=== PATIENT | female | born 1975 | race African-American/Black ===

== ENCOUNTER 2021-10-28 15:32 | Emergency (ER) | payer MEDICAID, OTHER ==
[~2021-10-28] VITALS: Ht 172.7 cm; Wt 109.0 kg
[2021-10-28 15:39] VITALS: BP 137/88
[2021-10-28] MEDS ORDERED: IBUP-2029 MT (18:27)
== END 2021-10-28 18:37 | disposition home or self-care (01) ==
LOC: ER 15:32
DX: S80.12XA Contusion of left lower leg, initial encounter (principal); Y00.XXXA Assault by blunt object, initial encounter; Y93.89 Activity, other specified; Y92.89 Other specified places as the place of occurrence of the external cause
CPT/HCPCS: 73590; 73610; 93971; 99284